=== PATIENT | male | born 1960 | race Caucasian/White ===

== ENCOUNTER 2018-05-27 11:04 | Outpatient (CLI) | payer OTHER | END 2018-05-27 11:05 | disposition home or self-care (01) | LOC: DTY/OP 11:04 | PROVIDERS: ATTEND Surgery | DX: E66.01 Morbid (severe) obesity due to excess calories (principal) | CPT/HCPCS: 97802 ==

== ENCOUNTER 2018-10-07 00:14 | Outpatient (CLI) | payer MEDICARE ==
[2018-10-07 11:36] LABS: #Eosinphils 0.1 thou/uL (0.0-0.7); #Lymphocytes 2.3 thou/uL (1.20-3.40); #Monocytes 0.4 thou/uL (0.11-0.59); #Neutrophils 3.2 thou/uL (1.40-6.50); %Basophils 0.5 % (0.0-1.0); %Eosinophils 1.6 % (0.0-10.0); %Lymphocytes 37.9 % (21.0-51.0); %Monocytes 6.6 % (0.0-10.0); %Neutrophils 53.5 % (42.0-75.0); Hemoglobin 14.9 g/dL (14.0-18.0); Mean Corpuscular HGB CONC 32.6 g/dL (32.0-36.0); Mean Corpuscular Hemoglobin 29.2 pg (27.0-31.0); Mean Corpuscular Volume 89.5 fL (78.0-98.0); Mean Platelet Volume 9.5 fL (7.4-10.4); Platelet Count 146 thou/uL (130-400); RBC Distribution Width 12.5 % (11.5-14.5); Red Blood Cell (RBC) Count 5.11 mill/uL (4.70-6.10)
[2018-10-07 11:52] LABS: Hemoglobin A1c 7.4 % (4.0-6.0)
[2018-10-07 11:58] LABS: ALT (SGPT) 102 U/L (8-55); AST (SGOT) 63 U/L (5-34); Albumin 4.4 g/dL (3.5-5.0); Alkaline Phosphatase 50 U/L (40-150); Anion Gap 11 mmol/L (10-20); BUN (Urea Nitrogen) 16 mg/dL (8.4-25.7); Bilirubin, Direct 0.2 mg/dL (0.1-0.3); Bilirubin, Total 0.6 mg/dL (0.2-1.2); Calc. Creatinine Clearance 0 mL/min (70-130); Carbon Dioxide 27 mmol/L (22-29); Chloride 103 mmol/L (98-107); Estimated GFR-MDRD 84; Glucose 104 mg/dL (70-105); Potassium 4.1 mmol/L (3.5-5.1); Protein, Total 7.4 g/dL (6.0-8.3); Sodium 137 mmol/L (136-145)
--- NOTE | 2018-10-07 12:15 | RAD ---
PA AND LATERAL CHEST: Date: 10/07/18 HISTORY: Preop. FINDINGS: Heart size and mediastinum are within normal limits. Lungs are clear of any focal infiltrates. There is some linear scarring in the left base. IMPRESSION: No active intrathoracic disease. POS: [facility]
== END 2018-10-07 00:15 | disposition home or self-care (01) ==
LOC: LABBT 00:14
PROVIDERS: ATTEND Surgery
DX: Z01.818 Encounter for other preprocedural examination (principal); E66.01 Morbid (severe) obesity due to excess calories
CPT/HCPCS: 71046; 80053; 80076; 83036; 85025

== ENCOUNTER 2018-10-07 10:00 | Inpatient (IN) | payer MEDICARE ==
[2018-10-13] MEDS ORDERED: Heparin 5,000 UNITS/ML VIAL ONE (06:23)
[2018-10-13] MEDS ORDERED: Bupivacaine HCl 0.5%/Epinephrine 1:200,000/PF 30 ml Vial ONE ×2 (06:41→07:02)
[2018-10-13] MEDS ORDERED: Fentanyl 250 MCG/5 ML VIAL ONE (07:08)
[2018-10-13] MEDS ORDERED: Promethazine HCl 25 MG/ML VIAL SLOW IVP PRN (08:40)
[2018-10-13] MEDS ORDERED: Promethazine HCl 25 MG/ML VIAL IM PRN ×3 (08:40→10:00)
[2018-10-13] MEDS ORDERED: Ondansetron HCl/PF 4 MG/2 ML Vial IVP PRN (08:40)
[2018-10-13] MEDS ORDERED: Meperidine HCl/PF 25 MG/ML VIAL SLOW IVP PRN (08:40)
[2018-10-13] MEDS ORDERED: diphenhydrAMINE 50 MG/ML VIAL IVP PRN (08:58)
[2018-10-13] MEDS ORDERED: hydrALAZINE 20 MG/ML VIAL SLOW IVP PRN (08:58)
[2018-10-13] MEDS ORDERED: Ondansetron PF 4 MG/2 ML Vial IVP PRN ×2 (08:58→10:00)
[2018-10-13] MEDS ORDERED: Dextrose 50% Abboject 50 ML SYRINGE SLOW IVP PRN (08:58)
[2018-10-13] MEDS ORDERED: Dextrose 5% in Water 1,000 ML IV PRN (08:58)
[2018-10-13] MEDS ORDERED: Hydrocodone-Acetamin 15 ML UDCUP PO PRN (08:58)
[2018-10-13] MEDS ORDERED: Fentanyl 100 MCG/2 ML VIAL ONE ×3 (09:08→09:43)
--- NOTE | 2018-10-13 09:20 | OP ---
DATE OF PROCEDURE: 10/13/2018 PREOPERATIVE DIAGNOSIS: Morbid obesity. PROCEDURES PERFORMED: Laparoscopic sleeve gastrectomy, esophagogastroscopy. INDICATIONS: A 58-year-old male, morbidly obese, who has attempted multiple weight loss programs without success. FINDINGS: A 38-Pashto bougie used. DESCRIPTION OF PROCEDURE: After informed consent was obtained, the patient was taken to the operating room and given general endotracheal anesthesia, placed in supine position. Abdomen was prepped and draped in usual fashion. Local anesthesia was infiltrated subcutaneously and deep. 12 mm incision was performed approximately 8 inches below the xiphoid slightly to the left. Veress needle inserted. Drop test performed. Pneumoperitoneum was created to a pressure of 15 mmHg. A 0-degree laparoscope was inserted under direct vision and Erma liver retractor inserted. Left lobe of liver retracted superiorly. The pylorus identified. A 12 mm port placed on the right beneath it and two 12s placed left subcostal. The omentum was taken off the greater curvature 5 cm from the pylorus utilizing the LigaSure. Short gastrics divided with LigaSure and left crura defined with LigaSure. A 38-Pashto bougie inserted, directed into the antrum. The linear 60 mm green load stapler used to divide the antrum to the bougie, gold load along the bougie, and a series of blues through the angle of His. Intraoperative endoscopy was performed. The video endoscope inserted under direct vision. The staple line inspected and there was no bleeding. Staple line then tested by inflating the new stomach with pressurized air and water, there was no air leak. Stomach decompressed. Scope removed. The remnants of the stomach removed from the abdomen through the left lateral port site. The fascia was closed with 0 Vicryl suture and the GraNee needle. Trocars and retractors removed. Hemostasis assured. Skin closed with interrupted 4-0 Rapide. Dermabond applied. The patient tolerated the procedure well, transferred to Recovery in good condition. Sponge and needle count verified correct x2. Job ID: [id number]
[2018-10-13] MEDS ORDERED: Sodium Chloride 0.9% (PF) 10 ML VIAL FS PRN (09:50)
[2018-10-13] MEDS ORDERED: Zolpidem Tartrate 5 MG TAB PO PRN (10:00)
[2018-10-13] MEDS ORDERED: diphenhydrAMINE 50 MG/ML VIAL IM/IV PRN (10:00)
[2018-10-13] MEDS ORDERED: fentaNYL Citrate/PF 2,000 MCG in Sodium Chloride 0.9% 60 ML IV PRN (10:00)
[2018-10-13] MEDS ORDERED: Naloxone HCl 0.4 mg/ml Vial IV PRN (10:00)
[2018-10-13] MEDS ORDERED: diphenhydrAMINE 25 MG CAP PO PRN (10:00)
[2018-10-13 11:13] VITALS: BMI 37.8
[2018-10-13] MEDS: D5 1/2 NS w/20 mEq KCL 1,000 ML IV SCH ×2 (11:30→18:33)
[2018-10-13] MEDS ORDERED: Ketorolac Tromethamine 30 MG/ML VIAL IVP SCH (12:00)
[2018-10-13] MEDS: Pantoprazole 40 MG VIAL IVP SCH (13:07)
[2018-10-13] MEDS: Ketorolac Tromethamine 30 MG/ML VIAL IVP SCH ×2 (14:49→21:25)
[2018-10-13] MEDS: CEFAZOLIN 2 GM in Premix Bag 1 BAG IVPB SCH ×2 (14:53→21:26)
[2018-10-14] MEDS: D5 1/2 NS w/20 mEq KCL 1,000 ML IV SCH ×2 (01:55→08:44)
[2018-10-14] MEDS: Ketorolac Tromethamine 30 MG/ML VIAL IVP SCH ×3 (03:55→11:41)
[2018-10-14] MEDS: Pantoprazole 40 MG VIAL IVP SCH (08:26)
[2018-10-14] MEDS ORDERED: Enoxaparin Sodium 40 MG/0.4 ML SYRINGE SC SCH (09:00)
[2018-10-14] MEDS: Hydrocodone-Acetamin 15 ML UDCUP PO PRN ×2 (09:02→13:22)
[2018-10-14 09:32] LABS: #Monocytes 0.5 thou/uL (0.11-0.59); %Basophils 0.2 % (0.0-1.0); %Eosinophils 0.5 % (0.0-10.0); %Lymphocytes 26.1 % (21.0-51.0); %Monocytes 6.5 % (0.0-10.0); %Neutrophils 66.6 % (42.0-75.0); Hemoglobin 14.1 g/dL (14.0-18.0); Mean Corpuscular HGB CONC 32.1 g/dL (32.0-36.0); Mean Corpuscular Hemoglobin 28.8 pg (27.0-31.0); Mean Corpuscular Volume 89.8 fL (78.0-98.0); Platelet Count 131 thou/uL (130-400); RBC Distribution Width 12.6 % (11.5-14.5); Red Blood Cell (RBC) Count 4.89 mill/uL (4.70-6.10); White Blood Cell (WBC) Count 7.5 thou/uL (4.8-10.8)
[2018-10-14 09:51] LABS: Anion Gap 13 mmol/L (10-20); BUN (Urea Nitrogen) 13 mg/dL (8.4-25.7); Calc. Creatinine Clearance 148 mL/min (70-130); Calcium 9.6 mg/dL (7.8-10.44); Carbon Dioxide 25 mmol/L (22-29); Chloride 106 mmol/L (98-107); Estimated GFR-MDRD 81; Glucose 106 mg/dL (70-105); Potassium 4.5 mmol/L (3.5-5.1); Sodium 139 mmol/L (136-145)
[2018-10-14 12:29] VITALS: BP 141/78; TEMP 97.1
--- NOTE | 2018-10-14 13:47 | RAD ---
SINGLE CONTRAST UPPER GI EXAM: Clinical history: Recent gastric/vertical sleeve procedure. Post-operative evaluation. FINDINGS: Small volume of radiopaque contrast was ingested orally with subsequent real-time fluoroscopy. Imagin g does not reveal abnormal leakage of the post-operative gastric lumen. There is free passage of cont rast through the esophagus in the post-operative stomach. IMPRESSION: No abnormal leakage of contrast from the gastric lumen identified. POS: [facility]
--- NOTE | 2018-10-14 16:45 | DIS ---
DATE OF ADMISSION: 10/13/2018 DATE OF DISCHARGE: 10/14/2018 DISCHARGE DIAGNOSIS: Morbid obesity. PROCEDURES DURING ADMISSION: Laparoscopic sleeve gastrectomy, intraoperative esophagogastroscopy, postoperative Gastrografin swallow. HOSPITAL COURSE: The patient was admitted, taken to the operating room where he underwent a sleeve gastrectomy. Postoperatively, he has done well. X-ray was fine. He is tolerating liquids well. He is discharged home on hydrocodone and Zofran and follow up with me in 2 weeks. Job ID: [id number]
== END 2018-10-14 14:40 | disposition home or self-care (01) | DRG 621 ==
LOC: SURG A 10-13 05:50
PROVIDERS: ADMIT Surgery; ATTEND Surgery
PROC: 0DB64Z3 Excision of Stomach, Percutaneous Endoscopic Approach, Vertical (ICD-10-PCS; principal; 2018-10-13)
PROC: 0DJ08ZZ Inspection of Upper Intestinal Tract, Via Natural or Artificial Opening Endoscopic (ICD-10-PCS; 2018-10-13)
DX: E66.01 Morbid (severe) obesity due to excess calories (principal); Z68.37 Body mass index [BMI] 37.0-37.9, adult
CPT/HCPCS: 36415; 74241; 80048; 85025; 88307; 88312; 94760; C9113; J0670; J1200; J1644; J1650; J1885; J2405; J3010; J7050; Q0163

== ENCOUNTER 2018-10-18 17:50 | Emergency (ER) | payer MEDICARE ==
[2018-10-18] MEDS ORDERED: Ondansetron PF 4 MG/2 ML Vial ONE (18:15)
[2018-10-18 18:22] LABS: #Basophils 0.1 thou/uL (0.0-0.2); #Eosinphils 0.1 thou/uL (0.0-0.7); #Lymphocytes 1.9 thou/uL (1.20-3.40); #Monocytes 0.6 thou/uL (0.11-0.59); #Neutrophils 5.1 thou/uL (1.40-6.50); %Basophils 0.7 % (0.0-1.0); %Eosinophils 1.2 % (0.0-10.0); %Lymphocytes 24.7 % (21.0-51.0); %Monocytes 7.2 % (0.0-10.0); %Neutrophils 66.2 % (42.0-75.0); Hemoglobin 16.7 g/dL (14.0-18.0); Mean Corpuscular HGB CONC 32.3 g/dL (32.0-36.0); Mean Corpuscular Hemoglobin 28.2 pg (27.0-31.0); Mean Corpuscular Volume 87.3 fL (78.0-98.0); Mean Platelet Volume 11.6 fL (7.4-10.4); Platelet Count 148 thou/uL (130-400); RBC Distribution Width 12.8 % (11.5-14.5); Red Blood Cell (RBC) Count 5.94 mill/uL (4.70-6.10); White Blood Cell (WBC) Count 7.7 thou/uL (4.8-10.8)
[2018-10-18 18:38] LABS: ALT (SGPT) 59 U/L (8-55); AST (SGOT) 25 U/L (5-34); Albumin 4.7 g/dL (3.5-5.0); Alkaline Phosphatase 58 U/L (40-150); Anion Gap 17 mmol/L (10-20); BUN (Urea Nitrogen) 12 mg/dL (8.4-25.7); Bilirubin, Total 0.9 mg/dL (0.2-1.2); Calc. Creatinine Clearance 0 mL/min (70-130); Calcium 10.2 mg/dL (7.8-10.44); Carbon Dioxide 25 mmol/L (22-29); Chloride 100 mmol/L (98-107); Estimated GFR-MDRD 83; Globulin 3.7 g/dL (2.4-3.5); Glucose 103 mg/dL (70-105); Lipase 28 U/L (8-78); Potassium 4.3 mmol/L (3.5-5.1); Protein, Total 8.4 g/dL (6.0-8.3); Sodium 138 mmol/L (136-145)
[2018-10-18 18:42] LABS: Base Excess-Venous 0.6 mmol/L (-2.0 to 3.0); Bicarbonate (HCO3v) 26.1 mmol/L (22.0-28.0); CO2 Tension (PvCO2) 43.6 mmHg (40.0-50.0); Calcium, Ionized 1.12 mmol/L (See Comments:); Chloride 103 mmol/L (98-107); O2 Tension (PvO2) 51.3 mmHg (35.0-45.0); Potassium 4.1 mmol/L (3.5-5.1); Sodium 137 mmol/L (138-145); T. Carbon Dioxide 27.4 mmol/L (22.0-28.0); pH (Venous) 7.385 (7.320-7.430); vO2 Saturation-calc 85.2 % (60.0-85.0)
[2018-10-18 18:55] LABS: Phosphorus 2.3 mg/dL (2.3-4.7)
[2018-10-18] MEDS ORDERED: Thiamine HCl 200 MG/2 ML VIAL ONE (19:56)
[2018-10-18] MEDS ORDERED: Multivit, Adult Inj 10 ML VIAL ONE (19:56)
[2018-10-18] MEDS ORDERED: Ketorolac Tromethamine 30 MG/ML VIAL ONE (20:18)
--- NOTE | 2018-10-18 21:52 | CT ---
CT OF ABDOMEN AND PELVIS PERFORMED WITH CONTRAST ENHANCEMENT: 10/18/18 HISTORY: Patient is status post a recent gastric bypass vertical sleeve procedure. Now with abdominal pain. Lung bases show some atelectatic change in both bases. More prominent on the left. No confluent infil trate or pleural effusion. The liver, shows diffuse fatty change. The spleen is within normal limits. The pancreas and gallbladd er regions appear unremarkable. Gallbladder is minimally distended. Right and left adrenal glands and right and left kidneys are normal in size. No significant periaorti c or mesenteric adenopathy. The recent postoperative changes of the stomach are noted. There are some mild inflammatory changes within the fat along the more lateral side of the gastric sleeve along the area of the greater curvature. There is no fluid collection or signs of any free air demonstrated. T hese changes could just represent the changes compatible with very recent surgery. CT OF PELVIS PERFORMED WITH CONTRAST ENHANCEMENT: There is some free fluid present but no consistent with the recent surgery. No adenopathy or mass. No inflammatory process. Minimal sigmoid diverticulosis is seen. Review of osseous structures show no significant findings. IMPRESSION: 1. Recent gastric sleeve procedure. There are some inflammatory changes within the fat adjacent to the sleeve but no signs of any fluid collection or evidence of air outside the lumen of the stomac h. 2. Diffuse fatty changes of the liver. 3. Incidental note is made of an exophytic cyst in the lower pole of the right kidney and minima l sigmoid diverticulosis. POS: [facility]
== END 2018-10-18 22:00 | disposition home or self-care (01) ==
LOC: SCSER 17:50
DX: G89.18 Other acute postprocedural pain (principal); R11.2 Nausea with vomiting, unspecified; I10 Essential (primary) hypertension
CPT/HCPCS: 74177; 80053; 82330; 82803; 83690; 83735; 84100; 85025; 93005; 96361; 96365; 96366; 96375; J1885; J2405; J3411

== ENCOUNTER 2023-04-05 02:08 | Inpatient (IN) | payer MEDICARE ==
[2023-04-05 05:14] VITALS: BMI 31.1
[2023-04-05] MEDS ORDERED: Lactated Ringer's 1,000 ML IV SCH (05:15)
[2023-04-05] MEDS ORDERED: Electrolyte Replacement Protocol 1 EACH FS SCH (05:15)
[2023-04-05] MEDS ORDERED: Ipratropium/Albuterol 3 ML NEB NEB PRN (05:16)
[2023-04-05] MEDS ORDERED: Acetaminophen 325 MG TAB PO PRN (05:28)
[2023-04-05] MEDS ORDERED: Ondansetron ODT 4 MG TAB PO PRN (05:28)
[2023-04-05] MEDS ORDERED: Ondansetron PF 4 MG/2 ML Vial IVP PRN (05:28)
[2023-04-05] MEDS ORDERED: NOREPINEPHRINE 8 MG/250 ML-D5W 250 ML IVPB PRN (05:33)
[2023-04-05] MEDS ORDERED: Piperacillin/Tazobactam 3.375 GM in Sodium Chloride 0.9% 100 ML IVPB SCH ×4 (05:45→06:00)
[2023-04-05] MEDS ORDERED: Vancomycin 1 GM in Premix Bag 1 BAG IVPB SCH (06:00)
[2023-04-05] MEDS ORDERED: Morphine 2 MG/ML VIAL SLOW IVP PRN (06:12)
[2023-04-05] MEDS: Fluticasone Propionate Nasal Spray 16 gm Bottle NASAL SCH (08:43)
[2023-04-05] MEDS: Lidocaine 4% Patch TD SCH (08:44)
[2023-04-05] MEDS: Loratadine 10 MG TAB PO SCH (08:44)
[2023-04-05] MEDS: Multivitamin W/ Minerals 1 TAB PO SCH (08:45)
[2023-04-05] MEDS: Gabapentin 300 MG CAP PO SCH ×2 (08:45→20:50)
[2023-04-05] MEDS ORDERED: Gabapentin 400 MG CAP PO SCH (09:00)
[2023-04-05] MEDS ORDERED: Famotidine/PF 20 mg/2ml Vial SLOW IVP SCH (09:00)
[2023-04-05] MEDS ORDERED: Cosyntropin 250 MCG VIAL SLOW IVP SCH (11:45)
[2023-04-05] MEDS ORDERED: Dexamethasone 10 MG/ML VIAL SLOW IVP ONE (14:20)
[2023-04-05] MEDS ORDERED: Dexamethasone 10 MG/ML VIAL SLOW IVP SCH (14:45)
[2023-04-05] MEDS ORDERED: Electrolyte Replacement Protocol FS PRN (14:45)
[2023-04-05] MEDS: HYDROcodone/Acetaminophen 5/325 mg Tablet PO PRN ×3 (15:04→23:59)
[2023-04-05] MEDS: Senokot S 8.6-50 MG TAB PO SCH (20:49)
[2023-04-05] MEDS: tiZANidine HCl 4 MG TAB PO SCH (20:50)
[2023-04-05] MEDS ORDERED: Transdermal Patch Removal TOP SCH (21:00)
[2023-04-05] MEDS ORDERED: Calcium Citrate 950 MG (200MG) TAB PO SCH (21:00)
[2023-04-06] MEDS ORDERED: Vancomycin 1.5 GRAM/300 ML BAG 1.5 GM in Premix Bag 1 BAG IVPB SCH (03:00)
[2023-04-06] MEDS: HYDROcodone/Acetaminophen 5/325 mg Tablet PO PRN ×3 (04:14→14:21)
[2023-04-06 05:46] LABS: #Monocytes 0.1 thou/uL (0.11-0.59); #Neutrophils 6.4 thou/uL (1.40-6.50); %Basophils 0.1 % (0.0-1.0); %Lymphocytes 11.1 % (21.0-51.0); %Monocytes 1.6 % (0.0-10.0); %Neutrophils 86.4 % (42.0-75.0); Hematocrit 36.7 % (42.0-52.0); Hemoglobin 12.3 g/dL (14.0-18.0); Mean Corpuscular HGB CONC 33.5 g/dL (32.0-36.0); Mean Corpuscular Volume 92.4 fl (78.0-98.0); Mean Platelet Volume 11.3 fL (7.4-10.4); Platelet Count 159 10x3/uL (130-400); RBC Distribution Width 12.4 % (11.5-14.5); Red Blood Cell (RBC) Count 3.97 mill/uL (4.70-6.10); White Blood Cell (WBC) Count 7.4 10x3/uL (4.8-10.8)
[2023-04-06 06:10] LABS: ALT (SGPT) 8 U/L (8-55); AST (SGOT) 11 U/L (5-34); Albumin 3.4 g/dL (3.4-4.8); Alkaline Phosphatase 42 U/L (40-110); Anion Gap 12 mmol/L (10-20); BUN (Urea Nitrogen) 12 mg/dL (8.4-25.7); Bilirubin, Total 0.3 mg/dL (0.2-1.2); Calc. Creatinine Clearance 132 mL/min (70-130); Calcium 7.8 mg/dL (7.8-10.44); Carbon Dioxide 19 mmol/L (23-31); Chloride 114 mmol/L (98-107); Estimated GFR 98; Globulin 2.5 g/dL (2.4-3.5); Glucose 111 mg/dL (80-115); Potassium 3.5 mmol/L (3.5-5.1); Protein, Total 5.9 g/dL (5.8-8.1); Sodium 141 mmol/L (136-145)
[2023-04-06] MEDS: Gabapentin 300 MG CAP PO SCH (08:38)
[2023-04-06] MEDS: Loratadine 10 MG TAB PO SCH (08:39)
[2023-04-06] MEDS: Senokot S 8.6-50 MG TAB PO SCH (08:39)
[2023-04-06] MEDS: Lidocaine 4% Patch TD SCH (08:40)
[2023-04-06] MEDS: Fluticasone Propionate Nasal Spray 16 gm Bottle NASAL SCH (08:40)
[2023-04-06] MEDS: tiZANidine HCl 4 MG TAB PO SCH (08:40)
[2023-04-06] MEDS ORDERED: Lisinopril 20 MG TAB PO SCH ×2 (09:00→13:15)
[2023-04-06] MEDS: Multivitamin W/ Minerals 1 TAB PO SCH (09:38)
[2023-04-06] MEDS ORDERED: Potassium Bicarbonate/Cit Ac 20 MEQ TAB PO SCH (11:30)
[2023-04-06] MEDS ORDERED: Amlodipine 5 MG TAB PO SCH ×2 (13:15→21:00)
[2023-04-06 14:55] VITALS: BP 157/93; TEMP 98
[2023-04-07] MEDS ORDERED: Lisinopril 20 MG TAB PO SCH (09:00)
== END 2023-04-06 16:54 | disposition home or self-care (01) | DRG 312 ==
LOC: CCU 04:19 → SJJU 17:18
PROVIDERS: ADMIT Family Medicine; ATTEND Family Medicine
DX: I95.2 Hypotension due to drugs (principal); N17.9 Acute kidney failure, unspecified; T40.2X5A Adverse effect of other opioids, initial encounter; I10 Essential (primary) hypertension; K21.9 Gastro-esophageal reflux disease without esophagitis; G89.29 Other chronic pain; E78.5 Hyperlipidemia, unspecified; Z90.49 Acquired absence of other specified parts of digestive tract; Z98.890 Other specified postprocedural states; Z80.1 Family history of malignant neoplasm of trachea, bronchus and lung; J30.2 Other seasonal allergic rhinitis; M54.50 Low back pain, unspecified; R00.1 Bradycardia, unspecified; Z87.891 Personal history of nicotine dependence; E66.9 Obesity, unspecified; Z68.31 Body mass index [BMI] 31.0-31.9, adult
CPT/HCPCS: 36415; 71045; 71250; 80053; 80306; 80307; 80400; 81001; 82533; 83605; 83690; 83735; 83880; 84145; 84443; 84484; 85025; 85379; 87040; 87086; 93005; 93010; J1100; J1650; J2250; J2272; J2543; J3370; J3370-JW; J3490; J7120

== ENCOUNTER 2024-08-04 10:34 | Emergency (ER) | payer MEDICARE, OTHER ==
[2024-08-04] MEDS ORDERED: Ketorolac Tromethamine 30 MG (1 mL) VIAL ONE ×2 (12:48→16:07)
[2024-08-04] MEDS ORDERED: fentaNYL 50 mcg/mL 1 mL Vial ONE ×2 (12:48→16:07)
[2024-08-04] MEDS ORDERED: Lidocaine 4% Patch ONE (12:48)
== END 2024-08-04 16:24 | disposition home or self-care (01) ==
LOC: ERS 10:34
DX: M54.42 Lumbago with sciatica, left side (principal); M54.41 Lumbago with sciatica, right side; G62.9 Polyneuropathy, unspecified; M48.061 Spinal stenosis, lumbar region without neurogenic claudication; I10 Essential (primary) hypertension; Z87.891 Personal history of nicotine dependence
CPT/HCPCS: 72125; 72131; 96372; J1885; J3010